=== PATIENT | male | born 1985 | race American Indian/Alaskan Native ===

== ENCOUNTER 2018-06-05 21:35 | Emergency (ER) | payer SELFPAY ==
[2018-06-05 21:42] VITALS: BP 133/92
--- NOTE | 2018-06-06 02:31 | XRay Report ---
FINAL REPORT EXAM: XR FINGER(S) 2+V RT HISTORY: pain swelling pinky COMPARISON: None available. FINDINGS: Two views of the right 5th finger obtained. Soft tissue swelling along the 5th proximal phalanx. Bony structures are intact. Joint spaces are preserved. No acute fracture dislocation. IMPRESSION: No acute bony abnormality. Soft tissue swelling along the 5th digit.
--- NOTE | 2018-06-06 02:32 | Emergency Department Report ---
ED Upper Extremity Inj HPI - General Chief Complaint: Extremity Problem,Nontraumatic Stated Complaint: RT PINKY Time Seen by Provider: 06/06/18 01:46 Source: patient Mode of arrival: Ambulatory Limitations: No Limitations - History of Present Illness Initial Comments: Patient is a 32-year-old -[place] male who presents right pinky pain and swelling states woke up like this patient states he tried to drain drain his finger with a needle scant bloody discharge now with pain and swelling pain described as4/10 aching throbbing pain relieved by rest pain exacerbated by palpation there is no numbness or tingling patient denies fall trauma or injury History of gout MD Complaint: Injury to:: right, finger Onset/Timin -: days(s) Other Extremity Injury: Fingers: Right (pinky ) Other Injuries: none Handedness: right Place: home Severity scale (0 -10): 4 Improves With: rest Worsens With: movement of extremity Context: other - Related Data Previous Rx's Medication Instructions Recorded Last Taken Type Cephalexin [Keflex] 500 mg PO TID #30 capsule 06/06/18 Unknown Rx traMADol [Ultram] 50 mg PO Q6HR PRN #12 tablet 06/06/18 Unknown Rx Allergies Allergy/AdvReac Type Severity Reaction Status Date / Time No Known Allergies Allergy Unverified 06/05/18 21:42 ED Review of Systems ROS: Stated complaint: RT PINKY Other details as noted in HPI Constitutional: denies: chills, fever Eyes: denies: eye pain, eye discharge, vision change ENT: denies: ear pain, throat pain Respiratory: denies: cough, shortness of breath, wheezing Cardiovascular: denies: chest pain, palpitations Endocrine: no symptoms reported Gastrointestinal: denies: abdominal pain, nausea, diarrhea Genitourinary: denies: urgency, dysuria Musculoskeletal: joint swelling, myalgia. denies: back pain, arthralgia Skin: denies: rash, lesions Neurological: denies: headache, weakness, paresthesias Psychiatric: denies: anxiety, depression Hematological/Lymphatic: denies: easy bleeding, easy bruising ED Past Medical Hx - Past Medical History Previous Medical History?: No - Surgical History Past Surgical History?: No - Social History Smoking Status: Current Every Day Smoker Substance Use Type: None - Medications Home Medications: Home Medications Medication Instructions Recorded Confirmed Last Taken Type Cephalexin [Keflex] 500 mg PO TID #30 capsule 06/06/18 Unknown Rx traMADol [Ultram] 50 mg PO Q6HR PRN #12 tablet 06/06/18 Unknown Rx ED Physical Exam - General Limitations: No Limitations General appearance: alert, in no apparent distress - Head Head exam: Present: atraumatic, normocephalic - Eye Eye exam: Present: normal appearance - ENT ENT exam: Present: mucous membranes moist - Neck Neck exam: Present: normal inspection, full ROM. Absent: tenderness, meningismus, lymphadenopathy, thyromegaly - Respiratory Respiratory exam: Present: normal lung sounds bilaterally. Absent: respiratory distress, wheezes, stridor, chest wall tenderness - Cardiovascular Cardiovascular Exam: Present: regular rate, normal rhythm, normal heart sounds. Absent: systolic murmur, diastolic murmur, rubs, gallop - GI/Abdominal GI/Abdominal exam: Present: soft, normal bowel sounds - Rectal Rectal exam: Present: deferred - Extremities Exam Extremities exam: Present: tenderness, normal capillary refill, joint swelling - Expanded Upper Extremity Exam Right Hand Wrist exam: Present: tenderness, swelling, other (right pinky swelling pain ). Absent: laceration, ecchymosis, deformity, crepidus, dislocation, erythema, amputation, nail avulsion, subungual hematoma Neuro motor exam: Present: wrist extension intact, thumb opposition intact, thumb IP flexion intact, thumb adduction intact, fingers 2-5 abduction intact Neurosensory exam: Present: 2-point discrimination, radial nerve intact, ulnar nerve intact, median nerve intact Vascular: Present: normal capillary refill, radial pulse, brachial pulse, ulnar pulse. Absent: vascular compromise, Pallo, pulse deficit radial art, pulse deficit ulnar art, pulse deficit brachial art - Back Exam Back exam: Present: normal inspection, full ROM. Absent: tenderness - Neurological Exam Neurological exam: Present: alert, oriented X3, CN II-XII intact, normal gait, reflexes normal - Psychiatric Psychiatric exam: Present: normal affect, normal mood - Skin Skin exam: Present: warm, dry, intact, normal color. Absent: rash, cyanosis, diaphoretic, erythema, urticaria, vesicles, pallor, abrasion, ecchymosis ED Course Vital Signs 06/05/18 21:40 Temperature 98.7 F Pulse Rate 82 Respiratory 16 Rate Blood Pressure 133/92 O2 Sat by Pulse 99 Oximetry - I & D Right Palm Finger Type of Procedure: Simple Site: right pinky finger Blade Size: 18g needle I & D Procedure: betadine prep Progress: Cycling Betadine solution anesthesia 1% lidocaine plain . Digital block straight to stick 18-gauge aspiration moderate purulent drainage or bleeding with Betadine solution and sterile dressing applied range of motion improved patient given wound care instructions patient tolerated procedure without minimal distress - Nerve Block Consent Obtained: verbal consent Time Out Performed: Yes Local Anesthetic Used: Lidocaine 1% Amount of anesthesia used: 1 Side: right Nerve Blocks: digital (pinky ) Procedure Successful: Yes Complications: none Patient Tolerated Procedure: well ED Medical Decision Making - Radiology Data Radiology results: image reviewed no fracture mild soft tissue swelling or foreign body - Medical Decision Making X-ray no fracture no osteomyelitis mild soft tissue swelling noticed a drainage of abscess of the successful digital block moderate purulent discharge male expression cycling with Betadine solution and sterile dressing applied all bleeding controlled range of motion improved to DC the home prescription for Keflex by mouth 10 days patient given wound care instructions verbalizes agreement and understanding of same follow with PCP in 2-3 days patient verbalizes understanding and agreement with same. We discharged home in stable condition at this time Critical care attestation.: If time is entered above; I have spent that time in minutes in the direct care of this critically ill patient, excluding procedure time. ED Disposition Clinical Impression: Abscess of finger, right Disposition: DC-01 TO HOME OR SELFCARE Is pt being admited?: No Does the pt Need Aspirin: No Condition: Good Instructions: Abscess (ED) Prescriptions: Cephalexin [Keflex] 500 mg PO TID #30 capsule traMADol [Ultram] 50 mg PO Q6HR PRN #12 tablet PRN Reason: Pain Referrals: [facility] [Outside] - 3-5 Days Forms: Work/School Release Form(ED) Time of Disposition: 03:01
[2018-06-06] MEDS ORDERED: KEFLEX PO ONE ×2 (02:59→07:00)
[2018-06-06] MEDS ORDERED: ULTRAM PO ONE (02:59)
[2018-06-06] MEDS ORDERED: KEFLEX ONE (03:10)
== END 2018-06-06 03:15 | disposition home or self-care (01) ==
LOC: ED 21:35
DX: L02.511 Cutaneous abscess of right hand (principal); F17.200 Nicotine dependence, unspecified, uncomplicated